=== PATIENT | female | born 1975 | race Caucasian/White ===

== ENCOUNTER 2025-05-06 15:05 | Emergency (ER) | payer MEDICARE ==
[~2025-05-06] VITALS: Ht 160 cm; Wt 50.0 kg
[2025-05-06 15:09] VITALS: TEMP 36.4; O2SAT 99
[2025-05-06 20:53] VITALS: BP 118/69; PULSE 72; RESP 14
[2025-05-06] MEDS: IBUPROFEN 600MG TABLET PO ONE (20:53)
[2025-05-07] MEDS ORDERED: IBUP-2028 MT (00:22)
== END 2025-05-07 02:40 | disposition home or self-care (01) ==
LOC: ER 15:05
DX: S32.591A Other specified fracture of right pubis, initial encounter for closed fracture (principal); X58.XXXA Exposure to other specified factors, initial encounter; Z79.899 Other long term (current) drug therapy; Y93.89 Activity, other specified; Y92.89 Other specified places as the place of occurrence of the external cause; Y99.8 Other external cause status
CPT/HCPCS: 72100; 72170; 72192; 99284